=== PATIENT | male | born 1990 | race African-American/Black ===

== ENCOUNTER 2020-04-16 14:43 | Emergency (ER) | payer OTHER ==
[~2020-04-16] VITALS: Ht 182.9 cm; Wt 68.0 kg
[2020-04-16 14:57] VITALS: Ht 182.9 cm; Wt 68.0 kg
[2020-04-16 18:30] VITALS: BP 134/83
== END 2020-04-16 18:30 | disposition home or self-care (01) ==
LOC: ED 14:43
DX: S61.214A Laceration without foreign body of right ring finger without damage to nail, initial encounter (principal); R03.0 Elevated blood-pressure reading, without diagnosis of hypertension; W25.XXXA Contact with sharp glass, initial encounter; Y93.89 Activity, other specified; Y92.89 Other specified places as the place of occurrence of the external cause; Y99.8 Other external cause status
CPT/HCPCS: 90715; A4570; J2001

== ENCOUNTER 2020-04-19 10:47 | Emergency (ER) | payer OTHER ==
[~2020-04-19] VITALS: Ht 182.9 cm; Wt 74.4 kg
[2020-04-19 10:56] VITALS: Ht 182.9 cm; Wt 74.4 kg
[2020-04-19 11:49] VITALS: BP 123/73
== END 2020-04-19 11:49 | disposition home or self-care (01) ==
LOC: ED 10:47
DX: S61.215D Laceration without foreign body of left ring finger without damage to nail, subsequent encounter (principal); X58.XXXD Exposure to other specified factors, subsequent encounter

== ENCOUNTER 2020-04-30 11:41 | Emergency (ER) | payer OTHER ==
[~2020-04-30] VITALS: Ht 182.9 cm; Wt 68.0 kg
[2020-04-30 11:48] VITALS: BP 131/90; Ht 182.9 cm; Wt 68.0 kg
== END 2020-04-30 12:45 | disposition home or self-care (01) ==
LOC: ED 11:41
DX: S61.215D Laceration without foreign body of left ring finger without damage to nail, subsequent encounter (principal); X58.XXXA Exposure to other specified factors, initial encounter